=== PATIENT | female | born 1985 | race Caucasian/White ===

== ENCOUNTER 2019-08-24 14:13 | Day surgery (SDC) | payer OTHER ==
[~2019-08-24] VITALS: Ht 158.8 cm; Wt 95.5 kg
[2019-08-24 15:02] VITALS: BP 144/100; PULSE 90; TEMP 97.4
[2019-08-24] MEDS ORDERED: VALIUM 2MG T2 MG/TAB PO (15:09)
[2019-08-24] MEDS ORDERED: SYNTHROID0.112 MG/T PO (15:10)
[2019-08-24] MEDS ORDERED: CYMBALTA 60MG60 MG PO (15:10)
[2019-08-24] MEDS ORDERED: MELATONIN5 M1 PO (15:11)
[2019-08-24] MEDS ORDERED: MOTRIN 800800 MG/TAB PO (15:12)
[2019-08-24] MEDS ORDERED: TYLENOL 500MG500 MG PO (15:12)
--- NOTE | 2019-08-24 15:13 | NUR ---
TO RM AT 1430- CALL LIGHT IN REACH LUIS MANUEL'José Antonio AT BEDSIDE.
[2019-08-24 16:45] VITALS: BP 128/81; PULSE 105; TEMP 97.6
--- NOTE | 2019-08-24 16:45 | NUR ---
TO BAY 6 PER CART FROM ENDOSCOPY. PATIENT CRYING AND STATING HOW WONDERFUL HER FIANCEE' WAS AND VERY TEARY EYED. RECEIVED WATER AND JELLO
--- NOTE | 2019-08-24 16:50 | NUR ---
DR SAEZ INTO TALK WITH PATIENT AND HER FIANCEE' ATE 100% AND TOLERATED WELL
[2019-08-24 17:00] VITALS: BP 147/88; PULSE 99
--- NOTE | 2019-08-24 17:00 | NUR ---
PATIENT NOT CRYING ANYMORE, BUT ASKING TO GO HOME. CONTINUES TO C/O BACK PAIN ON ADMISSION.
--- NOTE | 2019-08-24 17:15 | NUR ---
RECEIVED DISCHARGE INSTRUCTIONS AND VERBALIZED UNDERSTANDING DISCONTINUED IV AND INT-CATHETER INTACT CHUCK HELPING PATIENT DRESSED.
--- NOTE | 2019-08-24 17:20 | NUR ---
AMBULATED TO BATHROOM WITH ASSIST AND TOLERATED WELL.
--- NOTE | 2019-08-24 17:30 | NUR ---
AMBULATED WITH NURSING STAFF AND LUIS MANUELE PER PATIENT REQUEST DUE TO EXTREME BACK PAIN WHEN SHE SITS.
[2019-08-24 19:23] VITALS: BP 132/91; PULSE 112
== END 2019-08-24 17:33 | disposition home or self-care (01) ==
LOC: SDCO 14:13
DX: K21.0 Gastro-esophageal reflux disease with esophagitis (principal); K22.2 Esophageal obstruction; K25.7 Chronic gastric ulcer without hemorrhage or perforation; Z88.1 Allergy status to other antibiotic agents; E66.9 Obesity, unspecified; Z68.37 Body mass index [BMI] 37.0-37.9, adult; Z88.2 Allergy status to sulfonamides; Z91.018 Allergy to other foods; J45.909 Unspecified asthma, uncomplicated; G47.33 Obstructive sleep apnea (adult) (pediatric); F17.210 Nicotine dependence, cigarettes, uncomplicated
CPT/HCPCS: C1726; J2250; J2704; J7120

== ENCOUNTER 2019-09-06 19:05 | Emergency (ER) | payer OTHER ==
[~2019-09-06] VITALS: Ht 157.5 cm; Wt 90.9 kg
[~2019-09-06 19:05] MED LIST: CYMBALTA 60MG60 MG PO; MELATONIN5 M1 PO; MOTRIN 800800 MG/TAB PO; SYNTHROID0.112 MG/T PO; TYLENOL 500MG500 MG PO; VALIUM 2MG T2 MG/TAB PO
[2019-09-06 19:18] VITALS: BP 138/85; TEMP 98.2
[2019-09-06 20:04] LABS: COLLECTION METHOD CLEAN CATCH
[2019-09-06 20:18] LABS: PH 8 (5-8); SQUAMOUS EPITHELIAL 0-2 /hpf; URINE APPEARANCE Clear; URINE BACTERIA None Seen /hpf; URINE BILIRUBIN Negative (NEGATIVE); URINE BLOOD 1+ (NEGATIVE); URINE COLOR Straw; URINE GLUCOSE Negative (NEGATIVE); URINE KETONE Negative (NEGATIVE); URINE LEUKOCYTE ESTERASE Negative (NEGATIVE); URINE NITRATE Negative (NEGATIVE); URINE PROTEIN(semi-quant) Negative (NEGATIVE); URINE UROBILINOGEN Negative (NEGATIVE)
[2019-09-06 20:20] LABS: BASO # 0.1 (0.0-0.2); EOS # 0.4 (0.0-0.7); EOS % 4.7 % (0-4.0); GRAN # 5.8 (1.4-6.5); HEMATOCRIT 38.9 % (37.0-47.0); HEMOGLOBIN 13.1 g/dl (12.5-16.0); LYMPH # 2.2 (1.2-3.4); LYMPH % 23.6 % (20.0-51.0); MEAN CELL VOLUME 86 fl (80.0-100.0); MEAN CORPUSCULAR HEMOGLOBIN 29 pg (27.0-31.0); MEAN CORPUSCULAR HGB CONC 34 g/dl (33.0-37.0); MEAN PLATELET VOLUME 10.6 fl (7.4-10.4); MONO # 0.7 (0.1-0.6); MONO % 7.4 % (1.7-9.3); PLATELET COUNT 336 K/mm3 (130-400); RED BLOOD COUNT 4.53 M/mm3 (4.10-5.30); REDCELL DISTRIBUTION WIDTH-CV 14.1 % (11.5-14.5)
[2019-09-06] MEDS ORDERED: DESYREL 100MG100 MG PO (20:21)
[2019-09-06] MEDS ORDERED: PROTONIX 40MG T40 MG PO (20:21)
[2019-09-06 20:41] LABS: ALBUMIN 4.5 gm/dL (3.5-5.0); BILIRUBIN,TOTAL 0.2 mg/dL (0.0-1.0); CALCIUM 9.4 mg/dL (8.4-10.2); CREATININE, serum 0.65 (0.52-1.25); TOTAL PROTEIN 7.5 gm/dL (6.4-8.2)
[2019-09-06 23:50] VITALS: PULSE 87
== END 2019-09-06 23:58 | disposition short-term general hospital (02) ==
LOC: COL.ER 19:05
PROVIDERS: Physician Assistant
DX: R32 Unspecified urinary incontinence (principal)
CPT/HCPCS: J1100; J1170; J2060; J2270; J2405; J7030

== ENCOUNTER 2019-11-09 13:50 | Day surgery (SDC) | payer OTHER ==
[~2019-11-09] VITALS: Ht 157.5 cm; Wt 96.0 kg
[~2019-11-09 13:50] MED LIST changes: +DESYREL 100MG100 MG PO; +PROTONIX 40MG T40 MG PO
[2019-11-09] MEDS ORDERED: SYNTHROID0.2 MG/TAB PO (14:01)
[2019-11-09 14:23] VITALS: BP 141/104; PULSE 88; TEMP 97.8
[2019-11-09 15:15] VITALS: BP 113/79; PULSE 107; TEMP 97.7
--- NOTE | 2019-11-09 15:15 | NUR ---
Patient arrives to Endo bay 4 via cart, accompanied by endo RN Rhoda. She is drowsy, arouses to name. She ambulates with unsteady gait and 2:1 assist to the chair in the room. Monitoring is applied. Pulse is elevated (was elevated during procedure per PAYAL Duong). Other VSS on room air. Her spouse is at the bedside. She denies pain or nausea. Dr. Prather is at the bedside to talk with patient and spouse.
[2019-11-09 15:30] VITALS: BP 112/89; PULSE 96
--- NOTE | 2019-11-09 15:30 | NUR ---
Patient is more awake. She is sitting up in the chair, talking with her spouse. VSS and WNL on room air. She is offered and receives juice and a muffin. Denies any pain or nausea.
[2019-11-09 15:45] VITALS: BP 135/99; PULSE 90
[2019-11-09 15:47] VITALS: BP 122/68; PULSE 100
--- NOTE | 2019-11-09 15:57 | NUR ---
Discharge criteria has been met. Discharge instructions discussed, denies any questions and verbalizes understanding. PIV removed with catheter intact and hemostasis achieved. Changes to clothing independently.
--- NOTE | 2019-11-09 16:04 | NUR ---
Patient is escorted to the exit via wheelchair by staff. She is discharged to home with ride in private vehicle at 1604.
== END 2019-11-09 16:04 | disposition home or self-care (01) ==
LOC: SDCO 13:50
DX: K20.0 Eosinophilic esophagitis (principal); K25.7 Chronic gastric ulcer without hemorrhage or perforation; K92.0 Hematemesis; B96.81 Helicobacter pylori [H. pylori] as the cause of diseases classified elsewhere; K22.2 Esophageal obstruction; R19.5 Other fecal abnormalities; R19.7 Diarrhea, unspecified; Z79.899 Other long term (current) drug therapy; G47.33 Obstructive sleep apnea (adult) (pediatric); F43.10 Post-traumatic stress disorder, unspecified; I10 Essential (primary) hypertension; J45.909 Unspecified asthma, uncomplicated; Z88.1 Allergy status to other antibiotic agents; E03.9 Hypothyroidism, unspecified
CPT/HCPCS: J2704; J7030

== ENCOUNTER → 2019-11-11 | Outpatient (CLI) | payer OTHER ==
[~2019-11-11] MED LIST changes: +SYNTHROID0.2 MG/TAB PO
== END ==
LOC: COL.RAD 09:21
DX: R14.0 Abdominal distension (gaseous) (principal); R11.10 Vomiting, unspecified; R11.0 Nausea

== ENCOUNTER → 2019-11-17 | Outpatient (CLI) | payer OTHER | LOC: COL.RAD 09:36 | DX: R10.9 Unspecified abdominal pain (principal); R11.2 Nausea with vomiting, unspecified | CPT/HCPCS: A9537; J2805 ==

== ENCOUNTER 2022-05-10 10:20 | Day surgery (SDC) | payer OTHER ==
[~2022-05-10] VITALS: Ht 160 cm; Wt 103.3 kg
[~2022-05-10 10:20] MED LIST changes: +MOTRIN 400400 MG/TAB PO; +NORCO 325 MG-51 TAB PO; +PRIL40 PO; +PYRIDIUM 100MG100 MG PO; +ZOFRAN ODT4 MG PO
[2022-05-10 11:12] VITALS: BP 129/81; PULSE 77; TEMP 97.5
[2022-05-10] MEDS ORDERED: ALEVE 220MG220 MG PO (11:16)
[2022-05-10] MEDS ORDERED: SYNTHROID 0.10.15 MG PO (11:17)
[2022-05-10] MEDS ORDERED: INDERAL 10MG10 MG PO (11:18)
[2022-05-10] MEDS ORDERED: DESYREL 50MG50 MG PO (11:19)
[2022-05-10] MEDS ORDERED: GLUCOPHAGE500 MG/TAB PO (11:19)
[2022-05-10] MEDS ORDERED: AMBIEN 5MG TABLE5 MG PO (11:19)
[2022-05-10 12:45] VITALS: BP 122/73; PULSE 95; TEMP 98.2
[2022-05-10 13:00] VITALS: BP 124/87; PULSE 79
[2022-05-10 13:15] VITALS: BP 127/92; PULSE 75
--- NOTE | 2022-05-10 13:25 | NUR ---
1245 PT RETURNED TO BAY 6 VIA CART. TRANSFERRED TO CHAIR WITH RN ASSIST. ALERT AND ORIENTED. MONITORS ATTACHED, INTERVALS AND ALARMS SET. VSS. PT DENIES PAIN OR NAUSEA. FOOD AND DRINK PROVIDED. CALL LIGHT IN REACH. 1300 VSS. PT DENIES DISCOMFORT. TOLERATING FOOD AND DRINK WELL. 1315 VSS. PT DENIES DISCOMFORT. REVIEWED DISCHARGE INSTRUCTIONS AND EDUCATION MATERIAL, ANSWERED ALL QUESTIONS. IV REMOVED WITHOUT COMPLICATIONS. PT ALLOWED TO DRESS. 1325 TRANSFERRED PT VIA WHEELCHAIR TO PERSONAL VEHICLE TO BE DRIVEN HOME BY .
== END 2022-05-10 13:25 | disposition home or self-care (01) ==
LOC: SDCO 10:20
DX: K21.00 Gastro-esophageal reflux disease with esophagitis, without bleeding (principal); Z79.899 Other long term (current) drug therapy
CPT/HCPCS: J2704; J7030